=== PATIENT | male | born 1970 | race Caucasian/White ===

== ENCOUNTER 2019-11-13 07:30 | Outpatient (CLI) | payer OTHER, SELFPAY ==
--- NOTE | 2019-11-29 15:48 | SLEEP_ITS ---
Basic nocturnal polysomnogram. DATE OF STUDY: 11/13/2019 ORDERING PHYSICIAN: Destiny Jimenez D.O. REASON FOR THIS STUDY: Obstructive sleep apnea. HISTORY: This patient is a 49-year-old male, 68 inches tall, weighing 260 pounds with a body mass index of 39.5. He has a history of falling asleep almost anywhere including the couch, loud snoring, poor sleep, which is not restorative. This is moderately severe. He has 4 brothers and a sister, all who use CPAP. He constantly snores loudly enough that others complain about it. He occasionally awakens at night with heartburn and belching. He rarely awakens at night feeling short of breath. He uses Flomax to help reduce the number of trips to the bathroom at night, but this did not help. He frequently has trouble sleeping with a cold. He does not gasp for breath at night. He occasionally has breathing problems reported to him by others. He occasionally sweats excessively at night. He does not have palpitations at night. He frequently falls asleep during the day, rarely involuntarily, never while driving. He does not fall asleep with physical effort. He does not fall asleep with laughing or crying. He does not have loss of muscle tone with strong emotion. He occasionally has daytime difficulties due to excessive sleepiness. He is a teacher. He does not feel paralyzed on waking or falling asleep. He occasionally has vivid dreamlike scenes upon awakening or falling asleep. He is never afraid to go to sleep. He denies having nightmares. He rarely remembers his dreams. He frequently has racing thoughts. He occasionally has feelings of sadness, depression and anxiety. He occasionally has muscular tension. He rarely notices parts of his body jerking. He rarely kicks at night. He occasionally has crawly achy feelings in his legs. He occasionally has leg pain at night. He rarely has morning jaw pain. He frequently grinds his teeth at night and frequently is bothered by pain during the day. He occasionally is awakened by pain during the night. He frequently wakes up feeling stiff in the morning with sore achy muscles and pain in his neck and spine. He has bowel disturbances, memory problems, concentration difficulties, fatigue and headaches. He estimates 6-7 hours of sleep at night, going to bed at 10:00 p.m., sometimes taking up to an hour to fall asleep. On a good night, he will wake twice, during the night to go to the bathroom or take out the dog. On an another night, he may be awake 5 times or more. He wakes in the morning at 06:00 a.m.. On the weekends he may go to bed anywhere between 10:00 p.m. and 1:00 a.m., waking between 7:00 a.m. and 10:00 a.m. he does not take naps. He is usually drowsy in the morning for 1 hour or longer. MEDICAL COMORBIDITIES: Hyperlipidemia, arthritis with chronic pain in his knees. Hypertension. History of depression. MEDICATIONS: Rosuvastatin. Advil p.r.n. HABITS: Tobacco many years ago. Two caffeinated beverages a day. No alcohol. DESCRIPTION OF THE STUDY: On the Heron Sleepiness Scale, his score is 9. This was conducted as a full night basic nocturnal polysomnogram using the Front Flip multiple channel system including EOG, EEG, submental EMG, EKG, nasal and oral airflow using thermistors and nasal pressure sensors, chest and abdominal belts, body position data and pulse oximetry. The study was scored using CMS guidelines. During the recording time was 504.6 minutes, sleep time 400.5 minutes, sleep efficiency 79.4%, sleep latency 6.9 minutes, REM latency 133.5 minutes, and 33 awakenings occurred with 19.6% of the study, awake after sleep onset 97.4 minutes. Stage 1 sleep compose 12.4%, he had 48% stage 2 sleep, 1.6% stage 3 sleep and 18.5% stage REM. He spent 13.5% of the study
== END 2019-11-13 07:31 | disposition home or self-care (01) ==
LOC: ANHCSM 07:32
PROVIDERS: PCP Family Medicine; Visit Provider Family Medicine
DX: G47.33 Obstructive sleep apnea (adult) (pediatric) (principal)
CPT/HCPCS: 95810

== ENCOUNTER → 2020-10-27 16:23 | Outpatient (CLI) | payer OTHER, SELFPAY ==
--- NOTE | ~2020-10-27 | XR_ITS ---
XR ankle RT 2V DATE: 10/27/2020 17:27 INDICATION: Right ankle and foot pain TECHNIQUE: AP and lateral views COMPARISON: None FINDINGS: There is mild lateral soft tissue swelling. No fracture or dislocation of the ankle or dis ruption of the ankle mortise. Mild plantar calcaneal enthesopathy. There is distal Achilles tendon calcification. IMPRESSION: Mild lateral soft tissue swelling Plantar calcaneal enthesopathy Distal Achilles tendon calcification Reviewed, dictated and finalized at location A. [employer]
== END ==
PROVIDERS: PCP Family Medicine; Visit Provider Family Medicine
DX: M79.89 Other specified soft tissue disorders (principal)
CPT/HCPCS: 73600

== ENCOUNTER 2022-12-23 08:13 | Emergency (ER) | payer OTHER, SELFPAY ==
[2022-12-23 08:24] VITALS: BP 144/84; PULSE 99; RESP 16; TEMP 37.2; O2SAT 99
--- NOTE | 2022-12-23 08:28 | ED.URI ---
HPI - URI/Sore Throat General Chief Complaint: Upper Respiratory Infection Stated Complaint: Cough/Ears Irritation Time Seen by Provider: 12/23/22 08:28 Source: patient Mode of arrival: ambulatory Limitations: no limitations History of Present Illness HPI Narrative: Patient is a 52-year-old male that presents with congestion, ear pressure, intermittent fever, and cough since Monday. States has similar symptoms and is currently on antibiotic regimen. States he thought it was allergies but has not taken any allergy medicine. Has been taking DayQuil/NyQuil and cough drops. Reports cough is worsening each day. History of bronchitis, pre diabetes, hyperlipidemia, borderline hypertension. States he felt like he was wheezy last night, has had inhalers in the past. Related Data Allergies Allergy/AdvReac Type Severity Reaction Status Date / Time No Known Drug Allergies Allergy Unknown Unknown Verified 12/23/22 08:32 Review of Systems Review of Systems: All systems reviewed & are unremarkable except as noted in HPI and below Constitutional: Constitutional: Denies body ache(s), Reports fever(s), Denies headache(s), Denies malaise and Denies weakness Eyes: Eyes: Denies loss of vision ENT: Reports otalgia, Denies headache(s), Reports nasal congestion, Denies sinus pain and Denies sore throat Cardiovascular: Cardiovascular: Denies chest pain, Denies irregular heart rhythm and Denies dyspnea Respiratory: Respiratory: Reports cough and Denies dyspnea Gastrointestinal: Gastrointestinal: Denies abdominal pain, Denies melena, Denies hematochezia, Denies diarrhea, Denies nausea and Denies vomiting Musculoskeletal: Musculoskeletal: Denies back pain, Denies myalgias and Denies arthralgias Integumentary/Breasts: Skin/Breast: Denies pruritus and Denies rash Neurologic: Denies headache(s), Denies loss of vision and Denies weakness Psychiatric: Psychiatric: Reports no additional psychiatric complaints PMFSH Past Medical History Medical History Peroneal tendinitis of right lower extremity Wears glasses Surgical History Surgical History H/O colonoscopy H/O vasectomy History of esophagogastroduodenoscopy (EGD) History of knee surgery B/L Meniscus repair Hx of LASIK Family History Family History Father Family history of diabetes mellitus in first degree relative Diabetes mellitus Hypertension Family history of cardiovascular disease Other High cholesterol Social History Social History (Updated 05/31/22 @ 15:29 by Nara Hua CMA) Smoking packs per day: 1 Smoking cigarettes per day: 20.0 Years smoked: 14 Smoking pack-years: 14.00 Smoking status: Never smoker Smoking end date: 09/04/99 Alcohol intake: current Drinks per week: 6 Alcohol use details: Beer Substance use: never Substance use type: does not use Gender identity (if verbalized by the patient): Male Comments At time of signature, agree with nursing past medical, surgical, social and family history. There is no relevant family history pertinent to the presenting complaint. Exam Const: General: cooperative, healthy appearing, comfortable, no acute distress and well nourished Nutritional Appearance: well nourished Orientation/consciousness: patient oriented x3 Limitations: no limitations HENMT: Head: normal to inspection, normocephalic and atraumatic Ears: hearing grossly normal bilaterally, external ears normal and TM's normal bilaterally Face/Nose/Sinus: Normal external nose present, normal facial exam, sinuses nontender and face symmetric Face and sinus: normal facial exam, sinuses nontender and face symmetric Mouth: Yes Normal oral and palatal mucosa present, Yes lip normal and Yes moist mucous membranes Teeth and gingiva: dentition normal Throat: posterior
== END 2022-12-23 08:50 | disposition home or self-care (01) ==
PROVIDERS: Emergency Provider Nurse Practitioner Family; PCP Family Medicine
DX: J32.9 Chronic sinusitis, unspecified (principal); J40 Bronchitis, not specified as acute or chronic; Z87.891 Personal history of nicotine dependence; R73.03 Prediabetes; E78.5 Hyperlipidemia, unspecified; R03.0 Elevated blood-pressure reading, without diagnosis of hypertension; Z98.52 Vasectomy status
CPT/HCPCS: 99213; G0463

== ENCOUNTER 2023-02-06 12:25 | Emergency (ER) | payer OTHER, SELFPAY ==
[2023-02-06 12:38] VITALS: BP 121/81; PULSE 85; RESP 16; TEMP 36.8; O2SAT 99
--- NOTE | 2023-02-06 13:15 | ED.URI ---
HPI - URI/Sore Throat General Chief Complaint: Upper Respiratory Infection Stated Complaint: cough Time Seen by Provider: 02/06/23 13:10 Source: patient, RN notes reviewed and old records reviewed Mode of arrival: ambulatory Limitations: no limitations History of Present Illness HPI Narrative: 52-year-old male who presents to [facility] with complaints of cough which is loose at times of yellow phlegm for 1.5 weeks which was initially dry and hacky that proceeded to be loose. Patient reports that he had bronchitis in early January and took antibiotic and steroid and his symptoms resolved till present symptoms started 1.5 weeks ago. Patient states that he has noted some wheezing at night, denies any acute shortness of breath. Patient states he has noted some nasal drainage and has some ear aches also. Patient denies any known fevers, chills sweats or body aches. He reports using Tessalon Perles and cough drops for his cough symptoms. MD elicited complaint: cough, rhinorrhea and other (ear aches) Onset (ago): day(s) (10) Description of mucous: yellow Treatments prior to arrival: other (cough drops and Tessalon Perles) Related Data Allergies Allergy/AdvReac Type Severity Reaction Status Date / Time No Known Drug Allergies Allergy Unknown Unknown Verified 02/06/23 12:34 Review of Systems Review of Systems: CONSTITUTIONAL: Denies malaise, chills, sweats, or fever. EYES: Denies visual changes, redness, or discharge. ENT: Reports rhinorrhea, congestion, no sinus pain, bilateral otalgia, no sore throat. CARDIOVASCULAR: Denies chest pain, palpitations, or edema. RESPIRATORY: Reports loose cough.? Denies dyspnea, reports some wheezing at night. GASTROINTESTINAL: Denies abdominal pain, nausea, vomiting, diarrhea SKIN: Denies rash or itching. MUSCULOSKELETAL: Denies myalgia. NEUROLOGIC: Denies headache. All systems reviewed & are unremarkable except as noted in HPI and below PMFSH Past Medical History Medical History Peroneal tendinitis of right lower extremity Wears glasses Surgical History Surgical History H/O colonoscopy H/O vasectomy History of esophagogastroduodenoscopy (EGD) History of knee surgery B/L Meniscus repair Hx of LASIK Family History Family History Father Family history of diabetes mellitus in first degree relative Diabetes mellitus Hypertension Family history of cardiovascular disease Other High cholesterol Social History Social History Smoking packs per day: 1 Smoking cigarettes per day: 20.0 Years smoked: 14 Smoking pack-years: 14.00 Smoking status: Never smoker Smoking end date: 09/04/99 Alcohol intake: current Drinks per week: 6 Alcohol use details: Beer Substance use: never Substance use type: does not use Gender identity (if verbalized by the patient): Male Comments At time of signature, agree with nursing past medical, surgical, social and family history. There is no relevant family history pertinent to the presenting complaint Exam Narrative: GENERAL: Well-appearing, well-nourished, and in no acute distress. HEAD: Normocephalic EYES: PERRLA, conjunctivae clear ENT: Nares clear, turbinates edematous and erythematous, clear discharge. Mucous membranes moist. TM pearly jacobson with dull light reflex bilaterally; no tragal tenderness. Oropharynx erythematous without lesions. Tonsils not enlarged and without exudate, no drooling, no hoarseness, no trismus, uvula midline.some post nasal drainage NECK: Supple. No lymphadenopathy CHEST: Clear to auscultation, breath sounds equal. No wheezing, rhonchi, rales, or stridor. No respiratory distress, speaks in full sentences.loose cough, SAO2 99% on room air HEART: Regular rate and rhyth
== END 2023-02-06 13:36 | disposition home or self-care (01) ==
PROVIDERS: Emergency Provider Registered Nurse; PCP Family Medicine
DX: J06.9 Acute upper respiratory infection, unspecified (principal); R05.9 Cough, unspecified; Z87.891 Personal history of nicotine dependence; Z98.52 Vasectomy status
CPT/HCPCS: 99213; G0463

== ENCOUNTER 2023-11-13 01:12 | Day surgery (SDC) | payer OTHER, SELFPAY ==
[2023-10-30 14:56] VITALS: BMI 35.9
--- NOTE | 2023-11-10 09:12 | SUR.PREOP ---
Patient called regarding upcoming procedure. Voicemail left regarding appointment times.
[2023-11-13 06:24] VITALS: BP 141/88; PULSE 76; RESP 20; TEMP 35.9; O2SAT 97
[2023-11-13] MEDS: LACTATED RINGERS 1,000 ML 150 ML IV CONT (06:36)
--- NOTE | 2023-11-13 07:26 | WPDANESEPPF ---
Anes - Initial Pre Proc Eval Procedure: Operation Date: 11/13/23 07:30 Proposed Procedures p Screening Colonoscopy - Hansel Rodgers MD Date/Time: 11/13/23 07:26 Surgeon: Hansel Rodgers MD Pre Op Diagnosis: neoplasm screening Patient Data Age: 53 Gender: M Height: 1.73 m Weight: 107.7 kg Last Vital Signs Temp 96.7 F L 11/13/23 06:24 Pulse 76 11/13/23 06:24 Resp 20 11/13/23 06:24 BP 141/88 H 11/13/23 06:24 Pulse Ox 97 11/13/23 06:24 O2 Del Method Room Air 11/13/23 06:24 Allergies Allergy/AdvReac Type Severity Reaction Status Date / Time No Known Drug Allergies Allergy Unknown Unknown Verified 11/13/23 06:23 Home Medications Medication Instructions Recorded Confirmed Type oxybutynin chloride 10 mg See Rx Instructions .Route 05/17/22 10/30/23 Rx tablet,extended release 24 hr .COMPLEX #90 tabs albuterol sulfate 90 mcg/actuation 2 puff inhalation QID PRN 02/06/23 10/30/23 Rx aerosol inhaler shortness of breath or wheezing #6.7 grams trazodone 50 mg tablet 50 mg PO QHS PRN insomnia #30 tabs 08/02/23 10/30/23 Rx rosuvastatin 5 mg tablet See Rx Instructions .Route 11/07/23 Rx .COMPLEX #90 tabs Patient hx anesthesia problems: none Family hx anesthesia problems: none Results Review: All pre-operative results and documents have been reviewed as part of the pre-operative evaluation. [facility], LAT[facility] Past Medical History Medical History Peroneal tendinitis of right lower extremity Wears glasses Surgical History Surgical History H/O colonoscopy H/O vasectomy History of esophagogastroduodenoscopy (EGD) History of knee surgery B/L Meniscus repair Hx of LASIK Family History Family History Father Family history of diabetes mellitus in first degree relative Diabetes mellitus Hypertension Family history of cardiovascular disease Other High cholesterol Social History Social History Smoking packs per day: 1.5 Smoking cigarettes per day: 30.0 Years smoked: 14 Smoking pack-years: 21.00 Smoking status: Former smoker Tobacco type: cigarettes Smoking end date: 09/04/99 Alcohol intake: current Drinks per week: 3 Alcohol use details: Beer Substance use: current Substance use type: marijuana Last use: 10/29/23 Living arrangements: with family Gender identity (if verbalized by the patient): Male Spiritual care concerns: No Anes - Eval Final PreProcedure Day of Procedure 11/13/23 07:26 Patient weight: obese Heart: regular rate and rhythm Lungs: clear to auscultation Airway: Mallampati scale class II Neurological: alert and oriented Last oral intake: >/= 8 hours ASA classification: III Emergent: no Anesthetic plan: proceed Anesthesia type and monitoring: general GIVS and standard monitoring Results Review: All pre-operative results and documents have been reviewed as part of the pre-operative evaluation. Informed Consent: The patient's anesthetic plan and its attendant risks and benefits were discussed with the patient/family/POA. Questions were solicited and answers provided to the satisfaction of the patient/family/POA.
--- NOTE | 2023-11-13 07:32 | PM.HPGS ---
History of Present Illness History of Present Illness Consent: Risks, benefits, and alternatives have been discussed and questions answered. Patient agrees to proceed with procedure. Chief complaint: neoplasm screening Narrative: Darius Francois II is a 53 year old male here for screening colonoscopy Review of Systems Constitutional: Constitutional: Denies headache(s) and Denies weakness Eyes: Eyes: Denies blurry vision ENT: Reports Normal hearing present, Denies headache(s) and Denies neck pain Cardiovascular: Cardiovascular: Denies chest pain and Denies dyspnea Respiratory: Respiratory: Denies dyspnea Gastrointestinal: Gastrointestinal: Reports no additional gastrointestinal complaints Genitourinary: Genitourinary: Denies dysuria Musculoskeletal: Musculoskeletal: Denies neck pain Integumentary/Breasts: Skin/Breast: Denies dry skin Neurologic: Reports Normal hearing present, Denies headache(s) and Denies weakness Psychiatric: Psychiatric: Denies anxiety Endocrine: Endocrine: Denies change in body appearance Hematologic/Lymphatic: Hematologic/Lymphatic: Denies easy bleeding Allergic/Immunologic: Allergic/Immunologic: Denies urticaria PMFSH Past Medical History Medical History Peroneal tendinitis of right lower extremity Wears glasses Surgical History Surgical History H/O colonoscopy H/O vasectomy History of esophagogastroduodenoscopy (EGD) History of knee surgery B/L Meniscus repair Hx of LASIK Family History Family History Father Family history of diabetes mellitus in first degree relative Diabetes mellitus Hypertension Family history of cardiovascular disease Other High cholesterol Social History Social History Smoking packs per day: 1.5 Smoking cigarettes per day: 30.0 Years smoked: 14 Smoking pack-years: 21.00 Smoking status: Former smoker Tobacco type: cigarettes Smoking end date: 09/04/99 Alcohol intake: current Drinks per week: 3 Alcohol use details: Beer Substance use: current Substance use type: marijuana Last use: 10/29/23 Living arrangements: with family Gender identity (if verbalized by the patient): Male Spiritual care concerns: No Meds Home Medications and Allergies Home Medications Medication Instructions Recorded Confirmed Type oxybutynin chloride 10 mg See Rx Instructions .Route 05/17/22 10/30/23 Rx tablet,extended release 24 hr .COMPLEX #90 tabs albuterol sulfate 90 mcg/actuation 2 puff inhalation QID PRN 02/06/23 10/30/23 Rx aerosol inhaler shortness of breath or wheezing #6.7 grams trazodone 50 mg tablet 50 mg PO QHS PRN insomnia #30 tabs 08/02/23 10/30/23 Rx rosuvastatin 5 mg tablet See Rx Instructions .Route 11/07/23 Rx .COMPLEX #90 tabs Allergies Allergy/AdvReac Type Severity Reaction Status Date / Time No Known Drug Allergies Allergy Unknown Unknown Verified 11/13/23 06:23 Vital Signs Vital Signs - 24 hr 11/13/23 06:24 Temperature 96.7 F L Pulse Rate 76 Respiratory Rate 20 Blood Pressure 141/88 H Pulse Oximetry 97 Oxygen Delivery Room Air Exam Const: General: comfortable and no acute distress HENMT: Face/Nose/Sinus: Normal nares present Eyes: General: appearance normal, both eyes and all related structures Neck: Neck: no JVD Resp: Auscultation: clear to auscultation bilaterally Cardio: Rate: regular rate Rhythm: regular rhythm GI: Inspection: non-distended GI Palp: Yes Soft to palpation Skin: General skin exam: normal color Neuro: General: gait normal Speech: normal speech Extrem: General: normal to inspection Psych: Mental Status: mental status grossly normal Assessment and Plan Assessment and plan (1) Screening for colon cancer:
[2023-11-13 07:50] VITALS: BP 110/72; PULSE 70; RESP 16; O2SAT 96
[2023-11-13 08:00] VITALS: BP 128/86; PULSE 67; RESP 13; O2SAT 97
[2023-11-13 08:10] VITALS: BP 132/91; PULSE 65; RESP 12; O2SAT 96
== END 2023-11-13 08:18 | disposition home or self-care (01) ==
PROVIDERS: PCP Family Medicine; Visit Provider Internal Medicine Gastroenterology
PROC: 0DJD8ZZ Inspection of Lower Intestinal Tract, Via Natural or Artificial Opening Endoscopic (ICD-10-PCS; CPT 45378; principal; 2023-11-13 07:30)
DX: Z12.11 Encounter for screening for malignant neoplasm of colon (principal); D12.0 Benign neoplasm of cecum; K64.8 Other hemorrhoids; K57.30 Diverticulosis of large intestine without perforation or abscess without bleeding; F12.90 Cannabis use, unspecified, uncomplicated; E66.9 Obesity, unspecified; Z68.36 Body mass index [BMI] 36.0-36.9, adult; Z79.51 Long term (current) use of inhaled steroids; Z98.890 Other specified postprocedural states; Z87.891 Personal history of nicotine dependence; Z82.49 Family history of ischemic heart disease and other diseases of the circulatory system
CPT/HCPCS: 45385; 88305; J2704; J7120

== ENCOUNTER 2024-04-10 08:27 | Emergency (ER) | payer OTHER, SELFPAY ==
--- NOTE | ~2024-04-10 | XR_ITS ---
EXAMINATION: XR chest 2V DATE: 04/10/2024 09:09 INDICATION: Fever and cough. TECHNIQUE: Frontal and lateral views of the chest were obtained. COMPARISON: None. FINDINGS: There are airspace opacities in right lower lobe, consistent with pneumonia. No pleural eff usion or pneumothorax. The heart size is normal. IMPRESSION: 1. Right lower lobe pneumonia. Reviewed, dictated and finalized at location A.
[2024-04-10 08:33] VITALS: BP 138/90; PULSE 84; RESP 16; TEMP 36.6; O2SAT 97
--- NOTE | 2024-04-10 08:59 | ED.URI ---
HPI - URI/Sore Throat General Chief Complaint: Upper Respiratory Infection Stated Complaint: Fever/Congestion Time Seen by Provider: 04/10/24 08:59 Source: patient, RN notes reviewed and old records reviewed Mode of arrival: ambulatory Limitations: no limitations History of Present Illness HPI Narrative: patient presents with complaints of 5 day history of fever, chills, cough. He reports that he has been using an inhaler for his symptoms with moderate relief. He reports that he has had some wheezing. He has not taken anything else for his symptoms. Reports last fever was yesterday. He is in no distress at this time, including respiratory distress. His only other complaint today is body aches Related Data Allergies Allergy/AdvReac Type Severity Reaction Status Date / Time No Known Drug Allergies Allergy Unknown Unknown Verified 04/10/24 08:44 Review of Systems Review of Systems: All systems reviewed & are unremarkable except as noted in HPI and below Constitutional: Constitutional: Reports as per HPI, Reports no additional constitutional complaints, Reports body ache(s) and Reports fever(s) ENT: Reports system reviewed and no additional complaints, except as documented Cardiovascular: Cardiovascular: Reports no additional cardiovascular complaints Respiratory: Respiratory: Reports no additional respiratory complaints, Reports cough, Reports pain with cough, Denies dyspnea and Reports wheezing Gastrointestinal: Gastrointestinal: Reports no additional gastrointestinal complaints PMFSH Past Medical History Medical History Peroneal tendinitis of right lower extremity Wears glasses Surgical History Surgical History H/O colonoscopy H/O vasectomy History of esophagogastroduodenoscopy (EGD) History of knee surgery B/L Meniscus repair Hx of LASIK Family History Family History Father Family history of diabetes mellitus in first degree relative Diabetes mellitus Hypertension Family history of cardiovascular disease Other High cholesterol Social History Social History Smoking packs per day: 1.5 Smoking cigarettes per day: 30.0 Years smoked: 14 Smoking pack-years: 21.00 Smoking status: Former smoker Tobacco type: cigarettes Smoking end date: 09/04/99 Alcohol intake: current Drinks per week: 3 Alcohol use details: Beer Substance use: current Substance use type: marijuana Last use: 10/29/23 Living arrangements: with family Gender identity (if verbalized by the patient): Male Spiritual care concerns: No Comments At the time of my signature, I reviewed and agree with the nursing past medical, surgical, social, and family history. There is no relevant family history pertinent to the patient complaint. Exam Const: General: cooperative, no acute distress, alert, awake and obese Orientation/consciousness: oriented to person, oriented to place and oriented to time HENMT: Head: normal to inspection Resp: Effort & Inspection: normal respiratory effort and able to speak in complete sentences Auscultation: clear to auscultation bilaterally, no crackles, no rales, no rhonchi and wheezes scattered wheezes and throughout Cardio: Palpation: normal PMI Rate: regular rate Rhythm: regular rhythm Heart sounds: S1 normal heart sound present and S2 normal heart sound present Neuro: General: oriented to person, oriented to place and oriented to time Cranial nerves: Yes CN's II-XII intact bilaterally Psych: Appearance: grossly normal Thought process: Normal thought process present Insight: Good insight present (Psych) Judgement: Good judgement present (Psych) Course Course Level of Care: Express Care Visit Vital Signs Vital signs: Vital Signs Temperature 97
== END 2024-04-10 09:28 | disposition home or self-care (01) ==
PROVIDERS: Emergency Provider Nurse Practitioner Family; PCP Family Medicine
DX: J18.1 Lobar pneumonia, unspecified organism (principal); Z87.891 Personal history of nicotine dependence; Z98.52 Vasectomy status
CPT/HCPCS: 71046; 99213; G0463